=== PATIENT | male | born 1995 | race Caucasian/White ===

== ENCOUNTER 2020-09-28 22:10 | Emergency (ER) | payer SELFPAY ==
[2020-09-28 22:37] VITALS: BP 158/81; PULSE 112; RESP 14; TEMP 37.2; O2SAT 97; BMI 25.7
--- NOTE | 2020-09-28 23:31 | ED_ITS ---
HPI - General Adult General: Chief complaint: General Medical Stated complaint: ring stuck on finger Time Seen by Provider: 09/28/20 22:52 History of Present Illness: HPI narrative: Patient put a ring on his right ring finger approximately 1520 minutes before arriving here he cannot get a back off now finger swelled cannot remove ring complaint: Ring stuck on finger Onset (ago): minute(s) Associated symptoms: Reports no associated symptoms Review of Systems Const: Denies: fever(s) or chills Musc: Reports: other (Ring is stuck on right ring finger) Psych: Denies: anxiety or depression Physical Exam Const: COMMON NORMALS: no acute distress Extremity: OTHER: Patient has a ring on right ring finger that is not coming off. Of finger is cool to touch but has good range of motion. Cut part of it with rafters but unable to get the ring fully off nursing on tried now. Psych: COMMON NORMALS: mental status grossly normal Course Vital Signs: Vital signs: Vital Signs Temperature 98.9 F 09/28/20 22:37 Pulse Rate 112 H 09/28/20 22:37 Respiratory Rate 14 09/28/20 22:37 Blood Pressure 158/81 09/28/20 22:37 Pulse Oximetry 97 09/28/20 22:37 MDM - General Adult MDM Narrative: Medical decision making narrative: It took involvement of the [place] fire department use a multitude of tools and into duty we are finally able to remove the ring. Is a very difficult removal and took well over an hour. Fingers fine underneath. Neurovascular status fingers fine. Discharge Plan Discharge Patient Disposition: Home Clinical Impression: Finger swelling Condition: Stable Discharge Orders: Discharge ED (Routine); Ordered 09/29/20 Ordered By: Corey Pretty Discharge Diet: Usual diet Discharge Activity: Increase activity as tolerated Patient Instructions: Abrasion (ED) Activity Restrictions/Additional Instructions: Follow-up here if he have any problems be careful placing rings on your finger. Coding Level of Care Code ED Residential Youth Counselor for Melbag Fwd Exam Expanded Problem Focused
--- NOTE | 2020-09-29 00:21 | PC.NURSE ---
Unable to cut ring with available ring cutting equipment in ED. Attempts to remove ring by this nurse, Alphonso SALAZAR, and Corey CARVALHO unsuccessful. Fire department notified and at chairside at this time.
[2020-09-29] MEDS: ibuprofen 600 mg Tablet PO (01:21)
--- NOTE | 2020-09-29 01:21 | PC.NURSE ---
Ring successfully removed from finger with assistance from [place] [employer]. Pt tolerated well.
[2020-09-29 01:23] VITALS: BP 124/74; PULSE 94; RESP 16; O2SAT 98
== END 2020-09-29 01:25 | disposition home or self-care (01) ==
PROVIDERS: Emergency Provider Nurse Practitioner Family
DX: S60.444A External constriction of right ring finger, initial encounter (principal); W49.04XA Ring or other jewelry causing external constriction, initial encounter
CPT/HCPCS: 12345; 99281; 99282

== ENCOUNTER 2021-07-11 13:36 | Emergency (ER) | payer SELFPAY ==
[2021-07-11 14:08] VITALS: BP 140/86; PULSE 96; RESP 18; TEMP 36.7; O2SAT 100; BMI 19.8
--- NOTE | 2021-07-11 14:27 | ED_ITS ---
HPI - Male Genitourinary General: Chief complaint: Urogenital-Male Stated complaint: Possibly STD Time Seen by Provider: 07/11/21 14:14 History of Present Illness: HPI Narrative: Patient is a 26-year-old male comes to the ED with testicular pain. Over 2 weeks ago patient was tested for gonorrhea and chlamydia and it came back positive. Patient received a fall antibiotic treatment for STD. Over the last week he has been developing some bilateral testicular pain. Denies any dysuria, hematuria, penile discharge, genital lesions/sores or ulcers on his penis. Denies any testicular swelling but admits they are tender to touch. Associated symptoms: Deny dysuria, hematuria, nausea or vomiting Review of Systems Const: Denies: fever(s), chills or fatigue Eyes: Denies: change in vision or eye discomfort ENMT: Denies: throat pain, odynophagia, nasal discharge or nasal congestion Card: Denies: chest pain, palpitations, edema, swelling of feet/ankles, dyspnea on exertion or orthopnea Resp: Denies: dyspnea, productive cough or non-productive cough GI: Denies: abdominal pain, nausea, vomiting, diarrhea, constipation or hematochezia : Reports: testicular pain (Bilateral); Denies: flank pain, difficulty urinating, dysuria, hematuria, genital pain, genital lesions or penile discharge Musc: Denies: neck pain, back pain or extremity swelling Skin/Breast: Denies: rash or new lesions Neuro: Denies: headache(s), numbness in extremities or weakness in extremities Physical Exam Const: COMMON NORMALS: patient oriented x3 HENMT: COMMON NORMALS: normocephalic HEAD & SCALP: normocephalic MOUTH: Normal oral and palatal mucosa present THROAT: posterior oropharynx normal and uvula midline Neck/C-Spine: COMMON NORMALS: supple GENERAL: Yes normal visual inspection Resp: COMMON NORMALS: normal respiratory effort, No retractions, No use of accessory muscles and clear to auscultation bilaterally AUSCULTATION: clear to auscultation bilaterally Cardio: COMMON NORMALS: regular rate, regular rhythm, S1 normal heart sound present, S2 normal heart sound present, No gallops present (Cardio), No clicks present (Cardio), No murmurs present (Cardio) and Peripheral pulses 2+ throughout RATE: regular rate RHYTHM: regular rhythm HEART SOUNDS: S1 normal heart sound present and S2 normal heart sound present PERIPHERAL PULSES: Peripheral pulses 2+ throughout GI: COMMON NORMALS: Normal to inspection, nondistended, normoactive bowel sounds present, Soft to palpation, non-tender and no masses PALPATION: Yes Soft to palpation : COMMON NORMALS: Yes no CVA tenderness BLADDER/KIDNEY EXAM: Yes no CVA tenderness MALE GROIN/PERINEUM EXAM: No Genital lesions present PENIS: normal penis and No Genital lesions present MEATUS: meatus normal SCROTUM: Yes testes descended bilaterally, Yes Scrotal tenderness present (bilateral), No erythematous, No scrotal swelling, No Scrotal lesions present and No scrotal mass Back/Pelvis: COMMON NORMALS: no CVA tenderness Extremity: COMMON NORMALS: normal to inspection Neuro: COMMON NORMALS: patient oriented x3 and moves all extremities Skin: GENERAL SKIN EXAM: dry skin Course Vital Signs: Vital signs: Vital Signs Temperature 98.1 F 07/11/21 14:08 Pulse Rate 96 07/11/21 14:08 Respiratory Rate 18 07/11/21 14:08 Blood Pressure 140/86 07/11/21 14:08 Pulse Oximetry 100 07/11/21 14:08 MDM - Male MDM Narrative: Medical decision making narrative: Patient is a 26-year-old male comes to the ED with testicular pain. Patient was diagnosed with gonorrhea little over 2 weeks ago and completed antibiotic treatment. Patient denies any penile discharge, genital lesions, testicular swelling or mass. Exam shows a nontoxic-appearing patient in no acute distress or pain. He does have some mild bilateral testicular tenderness upon palpation but rest of exam is benign. Vitals are stable. Ultrasound of scrotum shows epididymitis. Patient was given a dose of Rocephin while here in the ED and discharged home with a prescription for levofloxacin. He was told to follow-up with PCP in 7 to 10 days reevaluation. Return to ED precautions given. Patient understood and agreed with plan. Lab Data: Attestation: I reviewed the patient's lab results. Labs: Lab Results 07/11/21 14:45 Urine Color Yellow (Yellow) Urine Appearance Cloudy (CLEAR) Urine pH 7 (5-7) Ur Specific Gravit y 1.010 (1.005-1.030) Urine Protein Neg (Negative) Urine Glucose (UA) Norm (Normal) Urine Ketones Negative (Negative) Urine Blood Neg (Negative) Urine Nitrate Negative (Negative) Urine Bilirubin Neg (Negative) Urine Urobilinogen Norm mg/dL mg/dL (Negative) Ur Leukocyte Olya ase Negative (Negative) Urine RBC None /hpf /hpf (0-2) Urine WBC None /hpf /hpf (0-5) Ur Squamous Epith Cells None /hpf /hpf (0-5) Amorphous Sediment 1+ /hpf /hpf Urine Bacteria Trace /hpf /hpf (NONE) Imaging Data: US: Attestation: I personally reviewed and interpreted this imaging study as follows: Radiologist's impression: Ultrasound of scrotum?prelim report bilateral epididymitis noted. [employer] [address] Ultrasound Report Signed Patient: Uzair Yusuf Unit #: [id number] : 1995 Age/Sex: 26 / M ADM Date: 07/11/21 Loc: ER Room/Bed: Attending Dr: Ordering Provider/Ordering MD: Bhavesh Leon Date of Service: 07/11/21 Procedure(s): US scrotum [id number] Accession Number(s): [id number] Report Number: [id number] WS: [id number] SCROTAL ULTRASOUND EXAMINATION CLINICAL INFORMATION: bilateral testicular pain COMPARISON: None. FINDINGS: TESTES Normal in size and echotexture, without focal lesion. Color Doppler: Normal color Doppler flow pattern. Right testes size: 3.8 cm x 2.8 cm x 1.9 cm. Left testes size: 3.8 cm x 2.6 cm x 1.9 cm. EPIDIDYMIDES Left epididymal cyst measuring 6 x 7 mm. Enlarged epididymis bilaterally, left greater than right, with increased vascularity compatible with epididymitis. Right epididymis size: 1.3 x 0.4 x 1.1 cm Left epididymitis size: 1.0 x 1.0 x 1.3 cm HYDROCELE Small left hydrocele with complex debris VARICOCELE None. OTHER FINDINGS None. US/US scrotum [id number] IMPRESSION: 1. Bilateral scrotal skin thickening. 2. Bilateral epididymal enlargement, left greater than right, compatible with epididymitis. 3. Small left hydrocele with complex debris. 4. Normal testicular vascularity bilaterally. No evidence of orchitis. Dictated By: Adilson Leonard MD Signed By: Adilson Leonard MD Signed Date/Time: 07/11/211654 DD/ 46 Discharge Plan Discharge Patient Disposition: Home Clinical Impression: Epididymitis Condition: Stable Prescriptions: New levofloxacin 500 mg tablet 500 mg PO DAILY 10 Days Qty: 20 RF: 0 ibuprofen 800 mg tablet 800 mg PO Q8H PRN (Reason: pain) Qty: 30 RF: 0 Discharge Orders: Discharge ED (Routine); Ordered 07/11/21 Ordered By: Bhavesh Leon Discharge Diet: Regular Discharge Activity: Resume usual activity Patient Instructions: Epididymitis (ED) Activity Restrictions/Additional Instructions: Follow-up with medical provider as directed in 7 to 10 days for reevaluation. Take medications as prescribed. Return to the ER or your medical provider if condition worsens. Please read and understand discharge instructions. Thank you for choosing [facility] for your healthcare needs today. Please realize this is an emergency room and that we are providing you with a medical screening exam and this may not be complete and all inclusive of all the testing and or work up that you may need to determine your ailment or severity of your illness. It is very important that you follow up as instructed or that you return to the Emergency Department should you have concerns or if your condition changes or worsens in any way. Coding Level of Care Code ED Diversional Therapist'S Assistant for Dc Morris Exam Comprehensive
--- NOTE | 2021-07-11 14:36 | US_ITS ---
WS: [id number] SCROTAL ULTRASOUND EXAMINATION CLINICAL INFORMATION: bilateral testicular pain COMPARISON: None. FINDINGS: TESTES Normal in size and echotexture, without focal lesion. Color Doppler: Normal color Doppler flow pattern. Right testes size: 3.8 cm x 2.8 cm x 1.9 cm. Left testes size: 3.8 cm x 2.6 cm x 1.9 cm. EPIDIDYMIDES Left epididymal cyst measuring 6 x 7 mm. Enlarged epididymis bilaterally, left greater than right, wi th increased vascularity compatible with epididymitis. Right epididymis size: 1.3 x 0.4 x 1.1 cm Left epididymitis size: 1.0 x 1.0 x 1.3 cm HYDROCELE Small left hydrocele with complex debris VARICOCELE None. OTHER FINDINGS None. US/US scrotum [id number] IMPRESSION: 1. Bilateral scrotal skin thickening. 2. Bilateral epididymal enlargement, left greater than right, compatible with epididymitis. 3. Small left hydrocele with complex debris. 4. Normal testicular vascularity bilaterally. No evidence of orchitis.
[2021-07-11] MEDS: ketorolac 60 mg/2 mL INJ IM (15:04)
[2021-07-11 15:07] LABS: Urine Appearance Cloudy (CLEAR); Urine Color Yellow (Yellow)
[2021-07-11 15:08] LABS: Bilirubin Urine Neg (Negative); Blood Urine Neg (Negative); Glucose Urine UA Norm (Normal); Ketones Urine Negative (Negative); Leukocyte Esterase Urine Negative (Negative); Nitrate Urine Negative (Negative); Protein Urine Neg (Negative); Urobilinogen Urine Norm (Negative); pH Urine 7 (5-7)
[2021-07-11 16:11] LABS: Add Urine Microscopic? NO
[2021-07-11 16:44] LABS: Add Urine Culture? No; Amorphous Sediment Urine 1+ /hpf; Bacteria Urine TRACE /hpf
== END 2021-07-11 16:45 | disposition home or self-care (01) ==
PROVIDERS: Emergency Provider Physician Assistant
DX: N45.1 Epididymitis (principal)
CPT/HCPCS: 76870; 81001; 93976; 96372; 99283; J1885

== ENCOUNTER 2022-03-24 10:05 | Emergency (ER) | payer SELFPAY ==
[2022-03-24 10:20] VITALS: BP 135/77; PULSE 92; RESP 18; TEMP 36.4; O2SAT 100; BMI 25.4
--- NOTE | 2022-03-24 10:25 | ED_ITS ---
HPI - Back Pain/Injury General: Chief Complaint: Back Pain/Injury Stated Complaint: back pain Time Seen by Provider: 03/24/22 10:25 Source: patient Mode of arrival: ambulatory Limitations: no limitations History of Present Illness: Patient is a 27-year-old male presents to ED today with a complaint of lower back and lower right-sided back pains that began yesterday after unloading a semitruck full of heavy boxes. Patient states he does have a history of intermittent lower back pains. He states his pain today radiates down into his right buttock. He is ambulatory without difficulty. He is not complaining of any urine/bowel retention or incontinence. MD elicited complaint: back pain Pertinent past history: prior back pain Onset (ago): day(s) (yesterday) Timing: constant Similar Symptoms Previously: Yes Location: lumbar spine and right lower back Radiation: buttocks (R) Exacerbating factors: movement and lifting Context: while lifting Associated symptoms: Reports no associated symptoms; Deny abdominal pain, chills, difficulty walking, dysuria, fever(s) or hematuria Review of Systems Const: Denies: fever(s), chills or body aches Card: Denies: chest pain Resp: Denies: dyspnea GI: Denies: abdominal pain : Denies: flank pain, dysuria or hematuria Musc: Reports: back pain; Denies: neck pain, extremity pain, extremity swelling, joint pain, joint swelling, joint redness, joint warmth, joint stiffness or limited range of motion Skin/Breast: Denies: rash Neuro: Denies: headache(s), numbness in extremities, weakness in extremities, sensory changes or difficulty walking Physical Exam Const: COMMON NORMALS: no acute distress, average body habitus, patient oriented x3, no limitations, alert and well nourished GENERAL APPEARANCE: cooperative : COMMON NORMALS: Yes no CVA tenderness BLADDER/KIDNEY EXAM: Yes no CVA tenderness Back/Pelvis: COMMON NORMALS: no CVA tenderness THORACIC SPINE/UPPER BACK: Yes normal to inspection, Yes thoracic ROM normal, No thoracic spinal tenderness, No paraspinal muscle tenderness and No paraspinal muscle spasm LUMBAR SPINE/LOWER BACK: Yes pain with ROM, No lumbar spinal tenderness, Yes paraspinal muscle tenderness Lumbar paraspinal muscle tenderness: right and No paraspinal muscle spasm PELVIS: Yes buttock abnormal Buttock abnormal latera lity: left Left buttock abnormal details: tenderness SACROILIAC JOINTS: Yes SI joint(s) abnormal SI joint details: tender to palpation (left) SACRUM: no tenderness COCCYX: no tenderness Extremity: COMMON NORMALS: normal to inspection, full ROM, capillary refill normal, no joint enlargement, no clubbing, cyanosis or edema, no calf tenderness and no pedal edema GENERAL: Yes normal exam except as noted Neuro: KILO COMA SCALE: document GCS findings Kilo coma scale eye opening: Spontaneous [place] coma scale verbal response: Orientated [place] coma scale motor response: Obey commands [place] coma scale total score: 15 COMMON NORMALS: patient oriented x3, moves all extremities, no focal motor deficits, no sensory deficits noted and gait normal SENSORIUM/ORIENTATION: Yes alert GAIT: Yes Normal gait present MOTOR EXAM: 5/5 motor strength present throughout Skin: COMMON NORMALS: no rashes or lesions noted GENERAL SKIN EXAM: no rashes or lesions noted Course Vital Signs: Vital signs: Vital Signs Temperature 97.6 F 03/24/22 10:20 Pulse Rate 92 03/24/22 10:20 Respiratory Rate 18 03/24/22 10:20 Blood Pressure 135/77 03/24/22 10:20 Pulse Oximetry 100 03/24/22 10:20 MDM - Back Pain/Injury Medical Decision Making Patient here with lower back pain following moving a semitruck full of heavy boxes yesterday. He has no acute neurologic deficits. There is no need for emergent imaging today. Patient be treated with NSAIDs, steroids, anti- inflammatories. Recommend follow-up with PCP in 1 to 2 weeks if symptoms do not improve. Return to ED precautions discussed. Discharge Plan Discharge Patient Disposition: Home Clinical Impression: Strain of lumbar region Qualifiers: Encounter type: initial encounter Qualified Code(s): S39.012A - Strain of muscle, fascia and tendon of lower back, initial encounter Condition: Stable Prescriptions: New methocarbamol 500 mg tablet 1,000 mg PO Q8H Qty: 30 0RF Medrol (Dharmesh) 4 mg tablets,dose pack See Rx Instructions .ROUTE .COMPLEX Qty: 21 0RF Rx Instructions: orally per package directions Continued ibuprofen 800 mg tablet 800 mg PO Q8H PRN (Reason: pain) Qty: 30 0RF Discharge Orders: Discharge ED (Routine); Ordered 03/24/22 Ordered By: Duyen Vaughan Stand Alone Forms: Work/School Release Coding Level of Care Code ED Proposal Manager for [facility] Arturo
== END 2022-03-24 11:00 | disposition home or self-care (01) ==
PROVIDERS: Emergency Provider Physician Assistant
DX: S39.012A Strain of muscle, fascia and tendon of lower back, initial encounter (principal); X50.0XXA Overexertion from strenuous movement or load, initial encounter
CPT/HCPCS: 99284

== ENCOUNTER 2022-07-05 18:32 | Emergency (ER) | payer SELFPAY ==
[2022-07-05 18:34] VITALS: BP 152/94; PULSE 80; RESP 16; TEMP 36.6; O2SAT 97; BMI 22.4
--- NOTE | 2022-07-05 18:35 | ED_ITS ---
HPI - Skin/Abscess/Foreign Bdy General: Chief complaint: Wound/Laceration Stated complaint: STAFF INFECTION Time Seen by Provider: 07/05/22 18:35 History of Present Illness: 27-year-old male patient comes in today for complaints of infected skin wound to his buttocks. Patient believes he has staph infection as it similar to previous episodes of staph. Patient appears nontoxic. Patient also reports some urinary difficulty and sores to his penis. Patient reports that he has had previous episodes of similar lesions. Associated symptoms: Reports chills; Deny fever(s), nausea or vomiting Review of Systems General: Reports: 10 or more systems reviewed and unremarkable except in HPI and below Const: Reports: chills; Denies: fever(s) ENMT: Denies: throat pain Resp: Denies: dyspnea GI: Denies: nausea or vomiting : Reports: genital lesions Skin/Breast: Reports: erythema and skin tenderness PFSH ED PFSH: Social History Smoking and tobacco status: current every day smoker Physical Exam Const: COMMON NORMALS: alert HENMT: COMMON NORMALS: normocephalic HEAD & SCALP: normocephalic Neck/C-Spine: COMMON NORMALS: full ROM Resp: COMMON NORMALS: normal respiratory effort Cardio: COMMON NORMALS: regular rate and regular rhythm RATE: regular rate RHYTHM: regular rhythm Extremity: COMMON NORMALS: normal to inspection Neuro: SENSORIUM/ORIENTATION: Yes alert Skin: LESIONS: lesion noted (Pustular lesion to the right middle finger) and other (Crusted lesion to the penis) WOUNDS: Yes wounds noted (Ulcerated wound to the right buttocks 3 cm, healing) Course Vital Signs: Vital signs: Vital Signs Temperature 97.9 F 07/05/22 18:34 Pulse Rate 80 07/05/22 18:34 Respiratory Rate 16 07/05/22 18:34 Blood Pressure 152/94 07/05/22 18:34 Pulse Oximetry 97 07/05/22 18:34 Oxygen Delivery Me thod 07/05/22 18:34 MDM - Skin/Abscess/Foreign Bdy Medicial Decision Making Patient comes in today for concerns of skin wound infections. On exam patient has ulcerated wound to the right buttocks that appears to be healing there is minimal induration and redness around the area. Patient also has a pustular lesion to the right hand middle finger on the dorsal side. Patient also has some crusted lesion to his penis. Differential diagnosis includes but not limited to abscess, staph infection, exposure to STD. We will go ahead and treat patient for staph with 1 g of ceftriaxone with doxycycline follow-up. This should give dual coverage for the staph infection and STDs. Patient was also given some mupirocin ointment to use on each of the lesions and any new lesions that make occur. Recommend follow-up with primary care in 1 week for recheck. Patient and chief nursing officer guardian reported understanding. Discharge Plan Discharge Patient Disposition: Home Clinical Impression: Abscess, Exposure to STD Condition: Stable Prescriptions: New doxycycline monohydrate 100 mg capsule 100 mg PO BID 10 Days Qty: 20 0RF mupirocin 2 % ointment 1 applic topical BID Qty: 22 0RF No Action baclofen PO TID methocarbamol 500 mg tablet 1,000 mg PO Q8H Qty: 30 0RF Medrol (Dharmesh) 4 mg tablets,dose pack See Rx Instructions .ROUTE .COMPLEX Qty: 21 0RF Rx Instructions: orally per package directions ibuprofen 800 mg tablet 800 mg PO Q8H PRN (Reason: pain) Qty: 30 0RF Discharge Orders: Discharge ED (Routine); Ordered 07/05/22 Ordered By: Sal Byrd Discharge Diet: Usual diet Discharge Activity: Limit activity as instructed Patient Instructions: Wound Infection (ED) Activity Restrictions/Additional Instructions: Use antibiotic ointment twice a day to the wound until completely healed. Apply antibiotic ointment to any new lesions. Follow-up with primary care in 3 to 4 days for recheck. Return to emergency department for worsening symptoms or new concerns. Coding Level of Care Code ED Community Arts Officer for Dc Morris
[2022-07-05] MEDS: doxycycline 100 mg Tablet PO (18:51)
[2022-07-05] MEDS: cefTRIAXone 1,000 MG in lidocaine 1% 2.1 ML 2.1 MG IM (18:52)
[2022-07-05] MEDS: mupirocin oint 22 gm 1 APPLIC TOPICAL (18:54)
== END 2022-07-05 19:00 | disposition home or self-care (01) ==
PROVIDERS: Emergency Provider Nurse Practitioner Family
DX: L02.31 Cutaneous abscess of buttock (principal); L98.8 Other specified disorders of the skin and subcutaneous tissue; Z20.2 Contact with and (suspected) exposure to infections with a predominantly sexual mode of transmission; F17.200 Nicotine dependence, unspecified, uncomplicated
CPT/HCPCS: 96372; 99284; J0696

== ENCOUNTER 2022-07-18 14:01 | Emergency (ER) | payer SELFPAY ==
[2022-07-18 14:03] VITALS: BP 141/80; PULSE 83; RESP 14; TEMP 36.6; O2SAT 97; BMI 21.1
--- NOTE | 2022-07-18 14:23 | ED_ITS ---
HPI - GI Bleed General: Chief complaint: GI Bleed Stated complaint: BLOOD IN STOOL Time Seen by Provider: 07/18/22 14:09 History of Present Illness: 27-year-old male brought in from group home center. Reports that last night he thought he noticed a little bit red to his stool and it was dark brown he is concerned about possible blood. Patient also reports he has a seizure history that he had a mild seizure that was unwitnessed and that he has a little bit of a headache now. Patient no reports of fevers chills nausea vomiting or other systemic complaints. He does not have any abdominal pain. Associated symptoms: Reports headache(s); Denies abdominal pain, chills, fever(s), nausea, rash or vomiting Review of Systems Const: Denies: fever(s), chills or fatigue Eyes: Denies: change in vision or blurry vision ENMT: Denies: throat pain or ear or mastoid pain Card: Denies: chest pain or palpitations Resp: Denies: dyspnea or productive cough GI: Reports: hematochezia; Denies: abdominal pain, nausea, vomiting, pain on defecation or melena : Denies: flank pain, difficulty urinating or urinary frequency Skin/Breast: Denies: rash or erythema Neuro: Reports: headache(s) and seizure-like activity PFSH ED PFSH: Social History Smoking and tobacco status: current every day smoker Physical Exam Const: COMMON NORMALS: no acute distress, average body habitus, patient oriented x3 and no limitations HENMT: COMMON NORMALS: normocephalic, hearing grossly normal bilaterally and m oist oral mucous membranes HEAD & SCALP: normal to inspection and normoce phalic Eye: COMMON NORMALS: EOMs intact bilaterally and conjunctivae normal CONJUNCTIVA: Yes conjunctivae normal Resp: COMMON NORMALS: normal respiratory effort, No retractions, No use of accessory muscles and clear to auscultation bilaterally EFFORT & INSPECTION: Yes able to speak in complete sentences AUSCULTATION: clear to auscultation bilaterally Cardio: COMMON NORMALS: regular rate and regular rhythm RATE: regular rate RHYTHM: regular rhythm GI: COMMON NORMALS: Soft to palpation and non-tender PALPATION: Yes Soft to palpation RECTAL EXAM: No heme positive stool and Yes hemorrhoids Neuro: COMMON NORMALS: patient oriented x3, CN's II-XII intact bilaterally, moves all extremities and no focal motor deficits Psych: COMMON NORMALS: mental status grossly normal, Normal thought process present, normal affect and speech normal SPEECH: Yes normal speech THOUGHT PROCESS: Normal thought process present Skin: COMMON NORMALS: no rashes or lesions noted and no wounds GENERAL SKIN EXAM: no rashes or lesions noted Course Vital Signs: Vital signs: Vital Signs Temperature 97.9 F 07/18/22 14:03 Pulse Rate 67 07/18/22 15:25 Respiratory Rate 14 07/18/22 15:25 Blood Pressure 141/80 07/18/22 15:25 Pulse Oximetry 100 07/18/22 15:25 Oxygen Delivery Me thod 07/18/22 14:03 MDM - GI Bleed Medical Decision Making Patient with negative occult stool. Patient does have a hemorrhoids otherwise no acute findings on lab or x-ray. Patient stable and discharged back to group home center. Lab Data 07/18/22 14:25 07/18/22 14:25 Laboratory Results WBC 9.1 10^3/uL (4.0-10.0) 07/18/22 14:25 RBC 5.42 10^6/uL (4.1-5.3) H 07/18/22 14:25 Hgb 15.7 g/dL (11.7-16.6) 07/18/22 14:25 Hct 47.3 % (42.0-52.0) 07/18/22 14:25 MCV 87.3 fl (80-94) 07/18/22 14:25 MCH 29.0 pg (28.0-34.0) 07/18/22 14:25 MCHC 33.2 g/dL (30.0-36.0) 07/18/22 14:25 RDW 12.5 % (12.1-15.1) 07/18/22 14:25 Plt Count 315 10^3/cmm (130-400) 07/18/22 14:25 MPV 9.0 fL (7.4-10.4) 07/18/22 14:25 Neut % (Auto) 66.3 % 07/18/22 14:25 Lymph % (Auto) 25.3 % 07/18/22 14:25 Tama % (Auto) 6.1 % 07/18/22 14:25 Eos % (Auto) 1.4 % 07/18/22 14:25 Baso % (Auto) 0.6 % 07/18/22 14:25 Neut # (Auto) 6.01 10^3/uL (1.8-7.7) 07/18/22 14:25 Lymph # (Auto) 2.3 10^3/uL (0.8-4.8) 07/18/22 14:25 Tama # (Auto) 0.6 10^3/uL (0.2-0.9) 07/18/22 14:25 Eos # (Auto) 0.1 10^3/uL (0.0-0.8) 07/18/22 14:25 Baso # (Auto) 0.1 10^3/uL (0.0-0.1) 07/18/22 14:25 Nucleated RBC % (auto) 0 % 07/18/22 14:25 Nucleated RBCs # 0.0 /100WBC 07/18/22 14:25 Sodium 138 mmol/L (136-145) 07/18/22 14:25 Potassium 3.6 mmol/L (3.5-5.1) 07/18/22 14:25 Chloride 99 mmol/L (98-107) 07/18/22 14:25 Carbon Dioxide 29 mmol/L (22-29) 07/18/22 14:25 Anion Gap 13.6 (5-19) 07/18/22 14:25 BUN 15 mg/dL (6-20) 07/18/22 14:25 Creatinine 0.8 mg/dL (0.7-1.2) 07/18/22 14:25 GFR Calculation 114.3 mL/min (90-130) 07/18/22 14:25 Glucose 112 mg/dL (65-115) 07/18/22 14:25 Calculated Osmolality 288 mOsm/kg (285-295) 07/18/22 14:25 Calcium 9.3 mg/dL (8.5-10.5) 07/18/22 14:25 Total Bilirubin 0.3 mg/dL (0.15-1.2) 07/18/22 14:25 AST 14 U/L (0-40) 07/18/22 14:25 ALT 11 U/L (0-41) 07/18/22 14:25 Alkaline Phosphatase 104 U/L (40-130) 07/18/22 14:25 Total Protein 6.9 g/dL (6.6-8.7) 07/18/22 14:25 Albumin 4.3 g/dL (3.5-5.2) 07/18/22 14:25 Globulin 2.6 g/dL (1.3-4.6) 07/18/22 14:25 Discharge Plan Discharge Patient Disposition: Home Clinical Impression: Hemorrhoids Condition: Stable Prescriptions: No Action baclofen PO TID mupirocin 2 % ointment 1 applic topical BID Qty: 22 0RF methocarbamol 500 mg tablet 1,000 mg PO Q8H Qty: 30 0RF Medrol (Dharmesh) 4 mg tablets,dose pack See Rx Instructions .ROUTE .COMPLEX Qty: 21 0RF Rx Instructions: orally per package directions ibuprofen 800 mg tablet 800 mg PO Q8H PRN (Reason: pain) Qty: 30 0RF Discharge Orders: Discharge ED (Routine); Ordered 07/18/22 Ordered By: Radu Acosta Patient Instructions: Hemorrhoids (DC), Opioid Safety, Pain Management Activity Restrictions/Additional Instructions: Follow-up with the group home center nurse or primary care provider as needed Coding Level of Care Code 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
--- NOTE | 2022-07-18 14:28 | XRR_ITS ---
PROCEDURE INFORMATION: Exam: XR Abdomen Exam date and time: 07/18/2022 3:52 PM Age: 27 years old Clinical indication: Patient HX: PT notices red in stool-possible blood in stools. Also May have had unwitness seizure and now has headache. ; Additional info: Bloody stool TECHNIQUE: Imaging protocol: Radiologic exam of the abdomen. Views: Frontal supine view of the abdomen. 1 View. COMPARISON: CR XR lumbar spine f/e only [id number] 03/21/2018 11:08 AM FINDINGS: Gastrointestinal tract: Normal. No bowel dilation. Bones/joints: Unremarkable. XR/XR KUB [id number] IMPRESSION: No acute findings.
[2022-07-18 14:39] LABS: Basophils # 0.1 10^3/uL (0.0-0.1); Basophils % 0.6 %; Eosinophils # 0.1 10^3/uL (0.0-0.8); Eosinophils % 1.4 %; Hematocrit 47.3 % (42.0-52.0); Hemoglobin 15.7 g/dL (11.7-16.6); Lymphocytes # 2.3 10^3/uL (0.8-4.8); Lymphocytes % 25.3 %; Mean Corpuscular HGB Conc 33.2 g/dL (30.0-36.0); Mean Corpuscular Volume 87.3 fl (80-94); Monocytes # 0.6 10^3/uL (0.2-0.9); Monocytes % 6.1 %; Neutrophils # 6.01 10^3/uL (1.8-7.7); Neutrophils % 66.3 %; Nucleated Red Blood Cells % 0 %; Platelet Count 315 10^3/cmm (130-400); Red Blood Count 5.42 10^6/uL (4.1-5.3); Red Cell Distribution Width 12.5 % (12.1-15.1); White Blood Count 9.1 10^3/uL (4.0-10.0)
[2022-07-18 14:58] LABS: Alanine Aminotransferase 11 U/L (0-41); Albumin Level 4.3 g/dL (3.5-5.2); Alkaline Phosphatase 104 U/L (40-130); Anion Gap 13.6 (5-19); Aspartate Amino Transferase 14 U/L (0-40); Blood Urea Nitrogen 15 mg/dL (6-20); Calcium 9.3 mg/dL (8.5-10.5); Carbon Dioxide 29 mmol/L (22-29); Chloride 99 mmol/L (98-107); Creatinine Clr Calc Pharmacy 148.3276; Globulin 2.6 g/dL (1.3-4.6); Glomerular Filtration Rate 114.3 mL/min (90-130); Glucose 112 mg/dL (65-115); Osmolality Calculated 288 mOsm/kg (285-295); Potassium 3.6 mmol/L (3.5-5.1); Sodium 138 mmol/L (136-145); Total Bilirubin 0.3 mg/dL (0.15-1.2); Total Protein 6.9 g/dL (6.6-8.7)
[2022-07-18 15:25] VITALS: BP 141/80; PULSE 67; RESP 14; O2SAT 100
== END 2022-07-18 15:37 | disposition home or self-care (01) ==
PROVIDERS: Emergency Provider Student in an Organized Health Care Education/Training Program
DX: K64.9 Unspecified hemorrhoids (principal); F17.210 Nicotine dependence, cigarettes, uncomplicated
CPT/HCPCS: 74018; 80053; 85025; 99284

== ENCOUNTER 2023-01-04 05:32 | Emergency (ER) | payer MEDICAID, SELFPAY ==
[2023-01-04 05:40] VITALS: BP 120/94; PULSE 99; RESP 16; TEMP 36.8; O2SAT 98; BMI 24.9
[2023-01-04 05:52] VITALS: BP 120/94; PULSE 79; RESP 16; O2SAT 95
--- NOTE | 2023-01-04 06:04 | W.ED.BACK ---
HPI - Back Pain/Injury General: Chief Complaint: Back Pain/Injury Stated Complaint: back pain Time Seen by Provider: 01/04/23 05:37 Source: patient Mode of arrival: ambulatory History of Present Illness: 27-year-old male presents to the emergency room with complaints of back pain radiating to his right leg he has a known history of previous back problems and reports to me that he had a back surgery at age 15. No recent trauma but he has been lifting a lot of heavy bags while at work. Denies any urinary retention or fecal incontinence. No numbness or tingling like you occasionally get sharp pain that shoots down the leg but is not continuous. MD elicited complaint: back pain Pertinent past history: prior back pain and back surgery Onset (ago): hour(s) Timing: constant Severity: moderate Similar Symptoms Previously: Yes Quality: sharp and throbbing Location: lumbar spine Radiation: right upper leg Exacerbating factors: movement, sitting upright and walking Relieving factors: supine Associated symptoms: Deny abdominal pain, arthralgias, chills, change in bowel habits, difficulty walking, dysuria, fatigue, fecal incontinence, fever(s), hematuria, myalgias, nausea, numbness, syncope, tingling/numbness/burning, urinary frequency, urinary urgency, vomiting or weakness Treatments prior to arrival: NSAIDS and acetaminophen Work related injury: Yes Review of Systems Const: Denies: fever(s), chills or fatigue ENMT: Denies: throat pain, ear or mastoid pain, nasal discharge or nasal congestion Card: Denies: chest pain or syncope Resp: Denies: dyspnea, productive cough or non-productive cough GI: Denies: abdominal pain, nausea, vomiting, fecal incontinence or change in bowel habits : Denies: difficulty urinating, dysuria, urinary frequency, urinary urgency or hematuria Skin/Breast: Denies: rash or pruritus Neuro: Denies: difficulty walking PFSH ED PFSH: Medical History Anxiety and depression Psychiatric care URI (upper respiratory infection) Social History Smoking and tobacco status: current every day smoker Physical Exam Const: GENERAL APPEARANCE: cooperative and comfortable ORIENTATION/CONSCIOUSNESS: Yes awake, Yes oriented to person, Yes oriented to place and Yes oriented to time HENMT: COMMON NORMALS: normocephalic, atraumatic and hearing grossly normal bilaterally HEAD & SCALP: normocephalic and atraumatic Resp: COMMON NORMALS: normal respiratory effort, No retractions, No use of accessory muscles and clear to auscultation bilaterally AUSCULTATION: clear to auscultation bilaterally Cardio: COMMON NORMALS: regular rate, regular rhythm and No murmurs present (Cardio) RATE: regular rate RHYTHM: regular rhythm GI: COMMON NORMALS: Soft to palpation and No hepatosplenomegaly present AUSCULTATION: Yes normoactive bowel sounds PALPATION: Yes Soft to palpation, No Tenderness to palpation present (GI), No Guarding due to palpation present (GI) and Yes No hepatosplenomegaly present Back/Pelvis: OTHER: Sensation lower extremities bilaterally normal with no deficits. Deep tendon reflexes +2/4 at the patellar tendons bilaterally. Dorsum plantarflexion strength 5 of 5 straight leg raising is negative. Extremity: COMMON NORMALS: normal to inspection, capillary refill normal, no clubbing, cyanosis or edema, no calf tenderness and no pedal edema Neuro: SENSORIUM/ORIENTATION: Yes oriented to person, Yes oriented to place and Yes oriented to time Skin: COMMON NORMALS: no rashes or lesions noted GENERAL SKIN EXAM: no rashes or lesions noted Course Vital Signs: Vital signs: Vital Signs Temperature 98.2 F 01/04/23 05:40 Pulse Rate 79 01/04/23 05:52 Respiratory Rate 16 01/04/23 05:52 Blood Pressure 120/94 01/04/23 05:52 Pulse Oximetry 95 01/04/23 05:52 Oxygen Delivery Me thod Room Air 01/04/23 05:52 MDM - Back Pain/Injury Medical Decision Making Musculoskeletal low back pain he does have some report of occasional radiation of pain to the leg but no deficits at this time. 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 He was given prescription for diclofenac and tizanidine he is discharged home with a work note as well for 2 days off work. Case management make arrangements for referral to orthopedic spine surgery. Medical Records I reviewed the patient's medical records. Labs I reviewed the patient's lab results. Discharge Plan Discharge Patient Disposition: Home Clinical Impression: Strain of lumbar region Condition: Stable Prescriptions: New tizanidine 4 mg tablet 4 mg PO Q6H PRN (Reason: muscle spasticity) Qty: 20 0RF Rx Instructions: do not exceed 3 doses per 24 hrs diclofenac sodium 75 mg tablet,delayed release (DR/EC) 75 mg PO Q12H PRN (Reason: pain) Qty: 20 0RF No Action bupropion HCl 150 mg tablet sustained-release 12 hr 150 mg PO QAM Qty: 30 2RF mirtazapine [Remeron SolTab] 45 mg tablet,disintegrating 45 mg PO .qhs Qty: 30 2RF hydroxyzine HCl 50 mg tablet 50 mg PO TID PRN (Reason: nasal drainage/cough/anxiety) Qty: 90 2RF Discharge Orders: Discharge ED (Routine); Ordered 01/04/23 Ordered By: Francisco Amin Referrals: Artem Luna MD [Primary Care Provider] - Discharge Diet: Usual diet Discharge Activity: Increase activity as tolerated Patient Instructions: Opioid Safety, Pain Management Activity Restrictions/Additional Instructions: You are seen today for back pain. Recommend for the next 7 to days limit lifting to no greater than 10 pounds. Avoid stooping or bending through the low back. Case management make arrangements for referral to orthopedic spine surgery. 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
--- NOTE | 2023-01-04 08:29 | DCPLANNER ---
Addendum entered by Shaina Junior 01/12/23 14:32: Patient had a followup appointment schedule with ortho - patient did attend appointment. Addendum entered by Shaina Junior 01/05/23 11:09: Patient has a follow up appointment scheduled for Thursday, January 05, 2023 at 2:00 with Cuauhtemoc Dolan at ortho. Original Note: corporate manager had message to schedule a follow up appointment for patient with ortho. corporate manager sent patients information to the front office staff at ortho. Patients information will be printed and reviewed. Clinic will call patient with appointment information.
== END 2023-01-04 06:11 | disposition home or self-care (01) ==
PROVIDERS: Emergency Provider Family Medicine; PCP Family Medicine
DX: S39.012A Strain of muscle, fascia and tendon of lower back, initial encounter (principal); F17.210 Nicotine dependence, cigarettes, uncomplicated; X50.0XXA Overexertion from strenuous movement or load, initial encounter; Y99.0 Civilian activity done for income or pay
CPT/HCPCS: 99285

== ENCOUNTER → 2023-01-05 13:55 | Outpatient (BNVA) | payer MEDICAID, SELFPAY | PROVIDERS: PCP Family Medicine; Referring Provider Family Medicine; Visit Provider Physician Assistant | DX: M54.50 Low back pain, unspecified (principal) | CPT/HCPCS: 72110 ==

== ENCOUNTER → 2025-01-10 09:01 | Outpatient (BNVA) | payer OTHER, SELFPAY | PROVIDERS: PCP Family Medicine; Visit Provider Nurse Practitioner Psychiatric/Mental Health | DX: F33.2 Major depressive disorder, recurrent severe without psychotic features (principal) | CPT/HCPCS: 80061; 83036 ==

== ENCOUNTER → 2025-08-01 15:06 | Outpatient (BNVA) | payer OTHER, SELFPAY ==
[2025-01-18 11:04] VITALS: BP 136/86; BMI 27.6
== END ==
PROVIDERS: PCP Family Medicine; Visit Provider Nurse Practitioner Psychiatric/Mental Health
DX: Z79.899 Other long term (current) drug therapy (principal)
CPT/HCPCS: 80053